=== PATIENT | female | born 1995 | race Two or more races ===

== ENCOUNTER 2025-05-31 02:17 | Emergency (ER) | payer MEDICAID ==
[~2025-05-31] VITALS: Ht 152.4 cm; Wt 63.6 kg
[2025-05-31 02:36] LABS: PLATELET COUNT (AUTO) 329 K/uL (150-450); RED BLOOD CELL COUNT(AUTO) 4.03 MIL/uL (4.00-5.20); RED CELL DISTRIBUTION WIDTH 12.3 % (11.5-14.5); WHITE BLOOD COUNT (AUTO) 8.0 K/uL (4.5-11.0)
[2025-05-31 02:45] LABS: CALCIUM, TOTAL 8.9 mg/dL (8.8-10.5); CREATININE 0.78 mg/dL (0.60-1.30); GLOMERULAR FILTR. RATE CALC > 60 mL/min (>60); GLUCOSE,RANDOM 119 mg/dL (70-110); SODIUM SERUM 136 mmol/L (136-145); UREA NITROGEN, BLOOD 21 mg/dL (7-18)
[2025-05-31] MEDS: MORPHINE SULFATE 2 MG/ML SYRINGE IVP ONE (02:52)
[2025-05-31] MEDS: SODIUM CHLORIDE 0.9% 1,000 ML IV ONE (02:52)
[2025-05-31] MEDS: METOCLOPRAMIDE HCL 5 MG/ML 2 ML VIAL IVP ONE (02:53)
[2025-05-31] MEDS: FAMOTIDINE 20 MG/2 ML VIAL IVP ONE (02:54)
[2025-05-31 02:56] LABS: ASPARTATE AMINOTRANSFERASE 25 U/L (15-37); HCG,QUANTITATIVE < 1 mIU/mL (0-6); TOTAL PROTEIN, SERUM 7.8 g/dL (6.4-8.2)
[2025-05-31] MEDS ORDERED: FAMO20 PO (06:33)
[2025-05-31 07:01] VITALS: BP 124/69; PULSE 65; RESP 16; TEMP 97.9; O2SAT 98
== END 2025-05-31 07:08 | disposition home or self-care (01) ==
LOC: EMS 02:19
DX: K80.20 Calculus of gallbladder without cholecystitis without obstruction (principal); R10.11 Right upper quadrant pain
CPT/HCPCS: 99285; 96374; 76705; 96361; 96375; 80048; 80076; 83690; 84702; 85025; 36415; J3490; J2765; J2270; J7030

== ENCOUNTER 2025-06-11 20:09 | Inpatient (IN) | payer MEDICAID ==
[~2025-06-11] VITALS: Ht 157.5 cm; Wt 59.1 kg
[~2025-06-11 20:09] MED LIST: FAMO20 PO
[2025-06-11 21:27] LABS: PLATELET COUNT (AUTO) 319 K/uL (150-450); RED BLOOD CELL COUNT(AUTO) 4.28 MIL/uL (4.00-5.20); RED CELL DISTRIBUTION WIDTH 12.3 % (11.5-14.5); WHITE BLOOD COUNT (AUTO) 8.4 K/uL (4.5-11.0)
[2025-06-11] MEDS: ONDANSETRON HCL 4 MG/2 ML VIAL IVP ONE (21:54)
[2025-06-11 22:02] LABS: CALCIUM, TOTAL 9.4 mg/dL (8.8-10.5); CREATININE 0.81 mg/dL (0.60-1.30); GLOMERULAR FILTR. RATE CALC > 60 mL/min (>60); GLUCOSE,RANDOM 102 mg/dL (70-110); SODIUM SERUM 136 mmol/L (136-145); UREA NITROGEN, BLOOD 18 mg/dL (7-18)
[2025-06-11 22:23] LABS: ASPARTATE AMINOTRANSFERASE 26 U/L (15-37); HCG,QUANTITATIVE < 1 mIU/mL (0-6); TOTAL PROTEIN, SERUM 8.4 g/dL (6.4-8.2)
[2025-06-11] MEDS: SODIUM CHLORIDE 0.9% 1,000 ML IV ONE (23:13)
[2025-06-11] MEDS: METOCLOPRAMIDE HCL 5 MG/ML 2 ML VIAL IVP ONE (23:13)
[2025-06-12] MEDS: MORPHINE SULFATE 2 MG/ML SYRINGE IVP ONE (00:14)
[2025-06-12 02:01] LABS: APPEARANCE,URINE CLEAR (CLEAR); GLUCOSE, URINE (UA) NEGATIVE (NEGATIVE); LEUKOCYTE ESTERASE ,URINE NEGATIVE (NEGATIVE); NITRATE,URINE NEGATIVE (NEGATIVE); OCCULT BLOOD,URINE NEGATIVE (NEGATIVE); SPECIFIC GRAVITIY, URINE 1.033 (1.003-1.030)
[2025-06-12] MEDS ORDERED: ONDANSETRON HCL 4 MG/2 ML VIAL IVP PRN (06:45)
[2025-06-12] MEDS: DOCUSATE SODIUM 100 MG CAPSULE PO SCH (09:50)
[2025-06-12] MEDS ORDERED: SODIUM CHLORIDE 0.9% 1,000 ML ONE ×2 (10:40→18:52)
[2025-06-12 13:12] VITALS: O2SAT 98
[2025-06-12] MEDS ORDERED: CHLORHEXIDINE GLUCONATE 2% TOWELETTE [2'S/6'S] TP ONE (15:00)
[2025-06-12] MEDS ORDERED: ETHYL ALCOHOL 62% ANTISEPTIC NASAL SANITIZER 0.6 ML AMPUL NASAL ONE (15:00)
[2025-06-12] MEDS ORDERED: FentaNYL CITRATE PF 100 MCG/2 ML VIAL ONE (15:54)
[2025-06-12] MEDS ORDERED: MIDAZOLAM HCL 2 MG/2 ML VIAL ONE (15:54)
[2025-06-12] MEDS ORDERED: RINGERS SOLUTION,LACTATED 1,000 ML IV ONE (16:00)
[2025-06-12] MEDS ORDERED: LIDOCAINE/PF 2% 5 ML VIAL ONE (17:28)
[2025-06-12] MEDS ORDERED: GLYCOPYRROLATE 0.2 MG/ML VIAL ONE (17:28)
[2025-06-12] MEDS ORDERED: ROCURONIUM BROMIDE 10 MG/ML 5 ML VIAL ONE (17:28)
[2025-06-12] MEDS ORDERED: PROPOFOL 1% 20 ML VIAL IVP ONE (17:28)
[2025-06-12] MEDS ORDERED: KETOROLAC TROMETHAMINE 60 MG/2 ML VIAL IM ONE (17:28)
[2025-06-12] MEDS ORDERED: SUGAMMADEX SODIUM 200 MG/2 ML VIAL IVP ONE (17:28)
[2025-06-12] MEDS ORDERED: METOCLOPRAMIDE HCL 5 MG/ML 2 ML VIAL ONE (17:28)
[2025-06-12] MEDS ORDERED: DEXAMETHASONE SOD PHOS 4 MG/ML VIAL ONE (17:28)
[2025-06-12] MEDS ORDERED: ONDANSETRON HCL 4 MG/2 ML VIAL ONE (17:28)
[2025-06-12] MEDS: KETOROLAC TROMETHAMINE 15 MG/ML VIAL IVP SCH (19:45)
[2025-06-12 20:58] VITALS: BP 116/76; PULSE 71; RESP 18; TEMP 98.2; O2SAT 100
[2025-06-13 04:59] VITALS: BP 108/70; PULSE 72; RESP 20; TEMP 98.2; O2SAT 98
[2025-06-13 05:55] LABS: PLATELET COUNT (AUTO) 263 K/uL (150-450); RED BLOOD CELL COUNT(AUTO) 3.63 MIL/uL (4.00-5.20); RED CELL DISTRIBUTION WIDTH 12.3 % (11.5-14.5); WHITE BLOOD COUNT (AUTO) 9.1 K/uL (4.5-11.0)
[2025-06-13 06:45] LABS: CALCIUM, TOTAL 8.4 mg/dL (8.8-10.5); CREATININE 0.77 mg/dL (0.60-1.30); GLOMERULAR FILTR. RATE CALC > 60 mL/min (>60); GLUCOSE,RANDOM 114 mg/dL (70-110); SODIUM SERUM 136 mmol/L (136-145); UREA NITROGEN, BLOOD 9 mg/dL (7-18)
[2025-06-13] MEDS: HEPARIN SODIUM,PORCINE 5,000 UNITS/ML VIAL SQ SCH (08:20)
[2025-06-13 09:26] VITALS: BP 114/72; PULSE 66; RESP 18; TEMP 97.9; O2SAT 99
[2025-06-13] MEDS ORDERED: ACET-3385 PO (09:59)
[2025-06-13] MEDS: ACETAMINOPHEN 325 MG TABLET PO PRN (12:20)
== END 2025-06-13 13:30 | disposition home or self-care (01) | DRG 263 ==
LOC: EMS 20:09 → EDH 06-12 06:40 → 6S 06-12 20:43
PROVIDERS: ADMIT Internal Medicine; ATTEND Internal Medicine
PROC: 0FT44ZZ Resection of Gallbladder, Percutaneous Endoscopic Approach (ICD-10-PCS; principal; 2025-06-12 18:30)
DX: K80.00 Calculus of gallbladder with acute cholecystitis without obstruction (principal)
CPT/HCPCS: 76705; 80048; 80076; 81003; 83735; 84702; 85025; 96361; 96374; 96375; 99285; J1100; J1171; J1644; J1885; J2250; J2270; J2405; J2704; J2765; J3010; J3490; J7030; 36415-L1; 36415-TC